=== PATIENT | female | born 1975 | race Hispanic/Latino ===

== ENCOUNTER → 2017-08-11 | Outpatient (CLI) | payer OTHER, SELFPAY ==
--- NOTE | 2017-08-11 13:31 | RAD ---
EXAM DESCRIPTION: Wrist,Left 3 Views CLINICAL HISTORY: 42 years, Female, PAIN IN LEFT WRIST COMPARISON: None TECHNIQUE: AP/ lateral/ oblique views of the left wrist. FINDINGS: Left wrist study shows no fracture or dislocation. Carpal relationships are well-maintained. A subcortical cyst in the distal aspect of the navicular is noted and benign in appearance and consistent with subcortical degenerative cyst. No collapse or osteonecrosis is seen. IMPRESSION: 1. Subcortical cyst in the distal pole of the navicular most likely degenerative. Otherwise negative study. Electronically signed by: Lauri Patton MD 08/11/2017 1:29 PM CDT
== END | disposition home or self-care (01) ==
LOC: RAD 08:53
PROVIDERS: ATTEND Orthopaedic Surgery
DX: M25.532 Pain in left wrist (principal)

== ENCOUNTER → 2018-03-19 | Outpatient (CLI) | payer BC, SELFPAY ==
--- NOTE | 2018-03-20 14:06 | MAM ---
EXAM DESCRIPTION: 3D Screening BILATERAL : Digital Mammography. CLINICAL HISTORY: 43 years Female SCREENING . No complaints. No family history of breast cancer. Childbirth. Hysterectomy. No HRT. COMPARISON: Baseline study at this facility. No prior reports available. TECHNIQUE: Bilateral CC and MLO projection full-field images, 3-D tomosynthesis digital mammographic technique. CAD not utilized. FINDINGS: The breast parenchymal density pattern is: Heterogeneously dense breast tissue, which may obscure small masses. No skin thickening or nipple retraction. . Bilateral solitary microcalcifications. Focal asymmetry in the upper outer quadrant of the posterior third of the left breast with relatively well-circumscribed mass densities. 230 clock position 4 cm from the nipple. Asymmetric thickening or asymmetry on the upper lateral aspect of the right nipple. Lobulated mass on the medial aspect of the anterior right breast. Approximately 2 cm from the nipple. IMPRESSION: BI-RADS CATEGORY: 0 - INCOMPLETE- Need additional imaging evaluation. FOLLOW-UP: Recall for additional imaging: Bilateral 3-D tomosynthesis full field LM images. Bilateral 2-D CC full-field images with skin mole markers. Bilateral targeted breast ultrasound regions of interest if clinically indicated by diagnostic images.. Written communication concerning the IMPRESSION and Follow-up, will be mailed to the patient and referring health care provider. Electronically signed by: Max Noland MD 03/20/2018 2:04 PM CDT
== END ==
LOC: MAMMO 10:56
PROVIDERS: ATTEND Obstetrics & Gynecology
DX: Z12.31 Encounter for screening mammogram for malignant neoplasm of breast (principal)

== ENCOUNTER → 2018-04-01 | Outpatient (CLI) | payer BC ==
--- NOTE | 2018-04-02 10:31 | US ---
EXAM DESCRIPTION: Breast,Bilateral: Ultrasound CLINICAL HISTORY: 43 yearsFemaleABNORMAL MAMMO COMPARISON: Digital 3-D and 2-D diagnostic mammography bilateral breasts on this visit. 3-D screening bilateral mammography 03/19/2018. TECHNIQUE: Transcutaneous scanning of the bilateral breasts utilizing zelaya-scale and Doppler modes. Scanning performed by the dry mill operator and Dr. Noland. FINDINGS: Scanning of the retroareolar right breast, 300, 900, and 1200 clock sectors. Mostly fibroglandular echotexture with minimal fatty tissues. No distinct solid mass or cyst. No large calcifications or parenchymal edema. Overlying skin is unremarkable. Normal Doppler vascularity. Scanning of the left breast 300 clock position from 7 cm from the nipple to the nipple. Multiple anechoic objects with well-defined margins, parallel orientation, and posterior enhancement features are noted. These are not vascular. These cysts range in size from 9.2-6.7 millimeters diameter. No distinct solid mass. No parenchymal edema or large calcifications. No overlying skin changes and normal Doppler vascularity. IMPRESSION: 1. Bi-Rads Category 2: Benign. 2. Please refer to bilateral diagnostic 3-D Kymberly synthesis mammographic examination and report on this visit. The FINDINGS and the FOLLOW-UP plan were reviewed in person with the patient after the examination. Written communication explaining the IMPRESSION and FOLLOW-UP will be mailed to the patient and referring care provider. Electronically signed by: Max Noland MD 04/02/2018 10:30 AM CDT
--- NOTE | 2018-04-02 17:02 | MAM ---
EXAM DESCRIPTION: 3D Diagnostic, Bilateral: Digital Mammography CLINICAL HISTORY: 43 yearsFemaleABNORMAL MAMMO . Focal asymmetry upper outer quadrant of the posterior third of the left breast. Lobulated mass medial anterior right breast. . COMPARISON: 3-D tomosynthesis bilateral screening mammography 03/19/2018.. Bilateral targeted breast ultrasound following this examination. Report from prior examination also reviewed. TECHNIQUE: Bilateral LM projection full-field images, 3-D tomosynthesis digital mammographic technique. Bilateral 2-D digital CC full-field images. CAD for 2-D images. FINDINGS: The breast parenchymal density pattern is: Heterogeneously dense breast tissue, which may obscure small masses. No skin thickening or nipple retraction asymmetric dense tissue retroareolar right breast. Minimal marker on the skin of the upper outer quadrant of the left breast is separate from May mass density underneath and slightly posterior to the skin marker. Ultrasound: Scanning of the retroareolar right breast, 300, 900, and 1200 clock sectors. Mostly fibroglandular echotexture with minimal fatty tissues. No distinct solid mass or cyst. No large calcifications or parenchymal edema. Overlying skin is unremarkable. Normal Doppler vascularity. Scanning of the left breast 300 clock position from 7 cm from the nipple, to the nipple. Multiple anechoic objects with well-defined margins, parallel orientation, and posterior enhancement features are noted. These are not vascular. These cysts range in size from 9.2-6.7 millimeters diameter. No distinct solid mass. No parenchymal edema or large calcifications. No overlying skin changes and normal Doppler vascularity. IMPRESSION: BI-RADS CATEGORY: 2 - BENIGN FINDINGS. FOLLOW UP: Return to routine digital bilateral screening, one year interval from February 2018. The FINDINGS and the FOLLOW-UP plan were reviewed in person with the patient after the examination. Written communication explaining the IMPRESSION and FOLLOW-UP will be mailed to the patient and referring care provider. According to the [employer], yearly mammograms are recommended starting at age 40 and continuing as long as a woman is in good health. Any breast change noted on a breast self-exam should be reported promptly to the patient's healthcare provider. Breast MRI is recommended for women with an approximately 20-25% or greater lifetime risk of breast cancer, including women with a strong family history of breast or ovarian cancer and women who have been treated for Hodgkin's disease. A negative mammographic report should not delay tissue diagnosis in patients with significant clinical history or physical findings. Extremely dense breast tissue limits the sensitivity of digital mammography. Electronically signed by: Max Noland MD 04/02/2018 5:00 PM CDT
== END ==
LOC: MAMMO 13:10
PROVIDERS: ATTEND Obstetrics & Gynecology
DX: R92.8 Other abnormal and inconclusive findings on diagnostic imaging of breast (principal)
CPT/HCPCS: 76641; 77066; G0279

== ENCOUNTER 2018-05-14 10:45 | Emergency (ER) | payer BC, OTHER ==
--- NOTE | 2018-05-14 11:30 | ED.PDOC ---
History of Present Illness - General Chief Complaint: Lower Extremity Injury Stated Complaint: R ankle inury Time Seen by Provider: 05/14/18 11:26 Source: patient Exam Limitations: no limitations - History of Present Illness Initial Comments: Yue Leonard 43 y/o female brought by em[facility] after she skidded down stairs where she worked twisting her right ankle and landed on her buttocks.Had sharp pain on her right ankle after incident but denies pain anywhere else.No neck /head injuries. Occurred: just prior to arrival Pain - Lower Extremity: moderate: Right Ankle Method of Injury: fell, twisted Improving Factors: rest Worsening Factors: movement Associated Symptoms: PAIN Allergies/Adverse Reactions: Allergies NO KNOWN ALLERGY Allergy (Unverified 05/21/14 12:00) Home Medications: Ambulatory Orders Acetaminophen W/ Codeine [Tylenol W/ CODEINE #3] 1 - 2 ea PO Q8H PRN #16 Ciprofloxacin [Cipro] 250 mg PO DAILY #10 tab 01/25/15 Ibuprofen [Motrin Tab] 600 mg PO Q8H #20 tab 01/25/15 Review of Systems - Review of Systems Constitutional: States: no symptoms reported EENTM: States: no symptoms reported Respiratory: States: no symptoms reported Cardiology: States: no symptoms reported Gastrointestinal/Abdominal: States: no symptoms reported Genitourinary: States: no symptoms reported Musculoskeletal: States: see HPI Skin: States: no symptoms reported Neurological: States: no symptoms reported Past Medical History (General) - Patient Medical History Hx Seizures: No Hx Stroke: No Hx Dementia: No Hx Asthma: No Hx of COPD: No Hx Cardiac Disorders: No Hx Congestive Heart Failure: No Hx Pacemaker: No Hx Hypertension: No Hx Thyroid Disease: No Hx Diabetes: No Hx Gastroesophageal Reflux: No Hx Renal Disease: No Hx of HIV: No Hx MRSA: No Surgical History: other - hysterectomy - Vaccination History Hx Influenza Vaccination: Yes - 2017 Hx Pneumococcal Vaccination: No - Social History Hx Tobacco Use: No Hx Alcohol Use: No Hx Substance Use: No Hx Physical Abuse: No Hx Emotional Abuse: No - Female History Hx Last Menstrual Period: 05/21/14 Patient : No Family Medical History - Family History Mother Family History: No Known Living Status: Still Living Hx Family Hypertension: Yes - mom Hx Family Diabetes: Yes - mom Physical Exam - Physical Exam General Appearance: Alert, Comfortable, No apparent distress Eyes, Ears, Nose, Throat: normal ENT inspection Neck: non-tender, full range of motion, supple Cardiovascular/Respiratory: regular rate, rhythm, no M/R/G, normal peripheral pulses, no JVD Gastrointestinal/Abdominal: non-tender, no organomegaly Back: no CVA tenderness, no vertebral tenderness Thigh/Hip: normal inspection, non-tender, no evidence of injury Leg: normal inspection, non-tender, no evidence of injury Knee: normal inspection, non-tender, no evidence of injury Ankle: limited ROM - right painful, pain - right ankle, soft tissue tenderness - right Foot: normal inspection, non-tender, no evidence of injury Neuro/Tendon: normal sensation, normal motor functions, normal tendon functions , responds to pain Mental Status: alert, oriented x 3 Skin: normal color, warm/dry Progress - Progress Progress: 05/14/18 11:34 Vital Signs - 8 hr 05/14/18 10:50 Temperature 99.1 F Pulse Rate [ 75 Left Radial] Respiratory 20 Rate Blood Pressure 135/76 [Right Arm] O2 Sat by Pulse 99 Oximetry - EKG/XRAY/CT XRAY: ankle - right-no fracture Departure - Departure Clinical Impression: Sprain and strain of right ankle Time of Disposition: 11:35 Disposition: Discharge to Home or Self Care Condition: Good Departure Forms: ED Discharge - Pt. Copy, Patient Portal Self Enrollment Instructions: Ankle Sprain, Ankle Sprain (DC) Referrals: Oscar Vivas MD [Primary Care Provider] - 1-2 Weeks Home Medications: Ambulatory Orders Acetaminophen W/ Codeine [Tylenol W/ CODEINE #3] 1 - 2 ea PO Q8H PRN #16 Ciprofloxacin [Cipro] 250 mg PO DAILY #10 tab 01/25/15 Ibuprofen [Motrin Tab] 600 mg PO Q8H #20 tab 01/25/15 Additional Instructions: May take over the counter Aleve one tablet am/pm for pain/swelling;Follow up with your workers sean CHANEY 15 May 2018
--- NOTE | 2018-05-14 11:30 | RAD ---
EXAM DESCRIPTION: Ankle,Right 3 Views CLINICAL HISTORY: fall, heard a "pop", swelling, pain COMPARISON: None. IMPRESSION: 3 views of the right ankle show no evidence of acute fracture, focal bone destruction, or joint dislocation. The ankle mortise appears maintained. Large plantar enthesophyte of the calcaneus is seen. Soft tissues are unremarkable. Electronically signed by: Prabhakar Puentes MD 05/14/2018 11:29 AM CDT
[2018-05-14] MEDS ORDERED: HYDROcodone 7.5MG/APAP 325MG 1 EA TAB PO ONE (11:42)
[2018-05-14 12:39] VITALS: O2SAT 100
[2018-05-14 12:41] VITALS: BP 118/77; TEMP 98.7
== END 2018-05-14 12:39 | disposition home or self-care (01) ==
LOC: ER 10:45
DX: S93.401A Sprain of unspecified ligament of right ankle, initial encounter (principal); W10.8XXA Fall (on) (from) other stairs and steps, initial encounter; X50.1XXA Overexertion from prolonged static or awkward postures, initial encounter; Y92.89 Other specified places as the place of occurrence of the external cause; Y99.0 Civilian activity done for income or pay

== ENCOUNTER → 2019-07-20 | Outpatient (CLI) | payer BC ==
--- NOTE | 2019-07-21 15:50 | MAM ---
EXAM DESCRIPTION: 3D Screening BILATERAL : Digital Mammography. CLINICAL HISTORY: 44 years Female ANNUAL SCREENING . No complaints. No personal or family history of breast cancer. Menarche age 14. Childbirth. Hysterectomy. No HRT. Lifetime risk of developing breast cancer (Tyrer-Cuzick model)(%): 7.2. COMPARISON: Bilateral screening digital breast tomosynthesis 03/19/2018. Diagnostic bilateral digital breast tomosynthesis 04/01/2018.. TECHNIQUE: Bilateral CC and MLO projection full-field images, digital tomosynthesis mammographic technique. Bilateral digital 2-D full-field MLO images. CAD not available for tomosynthesis or 2-D images. FINDINGS: The breast parenchymal density pattern is: Heterogeneously dense breast tissue, which may obscure small masses. No skin thickening or nipple retraction. Nodular pattern of fibroglandular tissues. Left axillary lymph node. Bilateral solitary microcalcifications. Cystlike structures more prominent in the lateral posterior left breast are stable.. No new focal, stellate mass or density, focal asymmetry , and no suspicious microcalcifications bilaterally. Stable mammograms compared to prior study. Taking into account, differences in mammographic technique. IMPRESSION: Benign exam. BIRAD CATEGORY: 2 BENIGN FINDINGS. RECOMMENDATIONS: FOLLOW UP: Routine digital bilateral mammographic screening, one year interval from July 2019. Written communication explaining the IMPRESSION and follow-up, will be mailed to the patient and referring health care provider. According to the [employer], yearly mammograms are recommended starting at age 40 and continuing as long as a woman is in good health. Any breast change noted on a breast self-exam should be reported promptly to the patient's healthcare provider. Breast MRI is recommended for women with an approximately 20-25% or greater lifetime risk of breast cancer, including women with a strong family history of breast or ovarian cancer and women who have been treated for Hodgkin's disease. A negative mammographic report should not delay tissue diagnosis in patients with significant clinical history or physical findings. Extremely dense breast tissue limits the sensitivity of digital mammography. Electronically signed by: Max Noland MD 07/21/2019 3:49 PM CDT
== END ==
LOC: MAMMO 09:44
PROVIDERS: ATTEND Obstetrics & Gynecology
DX: Z12.31 Encounter for screening mammogram for malignant neoplasm of breast (principal)

== ENCOUNTER → 2020-05-16 | Outpatient (CLI) | payer BC ==
--- NOTE | 2020-05-16 15:52 | RAD ---
EXAM DESCRIPTION: Cervical Spine, 2-3 Views CLINICAL HISTORY: 45 years Female, fall COMPARISON: None. Findings: 3 view(s)/radiograph(s) Location: Cervical spine C1- C7 demonstrated on the lateral view. The lung apices are unremarkable. Prevertebral soft tissues are unremarkable. No acute fracture or subluxation. Vertebral body heights are maintained. Mild multilevel degenerative disc disease. Curvilinear radiodensity anterior to the neck on the lateral radiograph is presumed external to the patient. IMPRESSION: Multilevel cervical spondylosis. No acute fracture or subluxation. Electronically signed by: Craig Lee MD 05/16/2020 3:50 PM CDT
--- NOTE | 2020-05-16 15:53 | RAD ---
EXAM DESCRIPTION: Thoracic Spine,AP Lateral CLINICAL HISTORY: 45 years Female, fall COMPARISON: None. Findings: 3 view(s)/radiograph(s) No vertebral anomaly. Vertebral body heights are maintained. No acute fracture or subluxation. Mild multilevel disc space narrowing with marginal osteophytes. Soft tissues are unremarkable. IMPRESSION: Multilevel thoracic spondylosis. No acute fracture or subluxation. Electronically signed by: Craig Lee MD 05/16/2020 3:51 PM CDT
--- NOTE | 2020-05-16 15:54 | RAD ---
EXAM DESCRIPTION: Lumbar Spine 3 Views CLINICAL HISTORY: 45 years Female, fall COMPARISON: None. FINDINGS: 3 views of the lumbar spine show vertebral body to be maintained. Normal alignment of the lumbar spine. Mild posterior disc space narrowing at L2-3 and L3-4. Mild facet hypertrophic and degenerative changes from L4 through S1. Mild increased volume of stool throughout the colon. IMPRESSION: Mild disc degenerative changes of the mid lumbar spine with facet arthropathy from L4 through S1 is seen. Mild colon constipation or obstipation is suspected. Electronically signed by: Prabhakar Puentes MD 05/16/2020 3:52 PM CDT
== END ==
LOC: RAD 14:43
PROVIDERS: ATTEND Nurse Practitioner Family
DX: M47.892 Other spondylosis, cervical region (principal); M47.896 Other spondylosis, lumbar region; M46.96 Unspecified inflammatory spondylopathy, lumbar region; M47.894 Other spondylosis, thoracic region; R19.8 Other specified symptoms and signs involving the digestive system and abdomen

== ENCOUNTER → 2020-11-24 | Outpatient (CLI) | payer BC ==
--- NOTE | 2020-11-27 11:14 | MAM ---
EXAM DESCRIPTION: 3D Screening BILATERAL : Digital Mammography. CLINICAL HISTORY: 45 years Female SCREEN . No complaints. Family history of breast cancer. Menarche age unknown. Childbirth age 19. Hysterectomy age 37. No HRT. Lifetime risk of developing breast cancer (Tyrer-Cuzick model)(%): 7.1. COMPARISON: Bilateral screening digital breast tomosynthesis July 2019 and February 2018. TECHNIQUE: Bilateral CC and MLO projection full-field images, digital tomosynthesis mammographic technique. Bilateral digital 2-D full-field MLO images. CAD available for 2-D images. FINDINGS: The breast parenchymal density pattern is: Heterogeneously dense breast tissue, which may obscure small masses. Axillary nodes. Solitary microcalcifications. Focal asymmetry upper outer quadrant posterior third left breast stable. Bilateral stable nodular densities. Most of these are in the upper outer quadrant of the posterior third of the left breast where cyst have been previously documented by directed ultrasound. Stable since the prior study.. No skin thickening or nipple retraction No new focal, stellate mass or density, focal asymmetry , and no suspicious microcalcifications bilaterally. Stable mammograms compared to prior study. IMPRESSION: Benign exam. BIRAD CATEGORY: 2 BENIGN FINDINGS. RECOMMENDATIONS: FOLLOW UP: Routine digital bilateral mammographic screening, one year interval from November 2020. Written communication explaining the IMPRESSION and follow-up, will be mailed to the patient and referring health care provider. According to the [employer], yearly mammograms are recommended starting at age 40 and continuing as long as a woman is in good health. Any breast change noted on a breast self-exam should be reported promptly to the patient's healthcare provider. Breast MRI is recommended for women with an approximately 20-25% or greater lifetime risk of breast cancer, including women with a strong family history of breast or ovarian cancer and women who have been treated for Hodgkin's disease. A negative mammographic report should not delay tissue diagnosis in patients with significant clinical history or physical findings. Extremely dense breast tissue limits the sensitivity of digital mammography. Electronically signed by: Max Noland MD 11/27/2020 11:13 AM [facility]
== END ==
LOC: MAMMO 09:02
PROVIDERS: ATTEND Nurse Practitioner Family
DX: Z12.31 Encounter for screening mammogram for malignant neoplasm of breast (principal)